=== PATIENT | female | born 1970 | race Caucasian/White ===

== ENCOUNTER 2023-04-25 21:18 | Emergency (ER) | payer OTHER ==
[2023-04-25 21:25] VITALS: TEMP 97.8
--- NOTE | 2023-04-25 21:59 | XR ---
EXAMINATION TYPE: XR wrist complete LT DATE OF EXAM: 04/25/2023 9:53 PM INDICATION: Patient age:Female; 52 years old; Reason for study: deformity fall; [facility]. COMPARISON: None TECHNIQUE: Left wrist was examined in the. Frontal, navicular, lateral, and oblique. FINDINGS/IMPRESSION: Comminuted distal radius fracture with shortening and posterior angulation, apex anterior. There is s oft tissue swelling throughout the distal wrist. Possible acute fracture of the ulnar styloid process also present.
[2023-04-25] MEDS ORDERED: LORazepam 1 MG TAB PO STA (22:29)
[2023-04-25] MEDS ORDERED: HYDROmorphone 1 MG/ML 1 ML SYRINGE IM STA (22:29)
[2023-04-25] MEDS ORDERED: ACET/COD 300 MG/30 MG STARTER PACK 6 TAB BTL PO STA (23:50)
--- NOTE | 2023-04-26 00:03 | ED ---
Upper Extremity HPI - General Chief Complaint: Extremity Injury, Upper Stated Complaint: Left wrist injury Time Seen by Provider: 04/25/23 21:25 Source: patient, family Mode of arrival: EMS Limitations: no limitations - History of Present Illness Initial Comments: 52-year-old female presents the emergency department reporting left wrist pain. States that she was at a tennis turn and when she lost her footing and fell on an outstretched left arm. She did have obvious deformity. She is right-hand dominant. Denies any numbness, tingling or weakness into her hand. Denies head injury. Did not take anything for pain before coming into the emergency department. No other alleviating, precipitating or modifying factors - Related Data Home Medications Medication Instructions Recorded Confirmed Ascorbic Acid [Vitamin C] 1,000 mg PO DAILY 04/25/23 04/25/23 Multivitamins, Thera [Multivitamin 1 tab PO DAILY 04/25/23 04/25/23 (formulary)] Vitamin D3/Vitamin K2 (Mk4) 1 tab PO DAILY 04/25/23 04/25/23 [Vitamin K2 Plus D3 Tablet] Previous Rx's Medication Instructions Recorded HYDROcodone/APAP 10-325MG [Zaleski 1 tab PO Q4HR PRN 3 Days #18 tab 04/26/23 10-325] Allergies Allergy/AdvReac Type Severity Reaction Status Date / Time No Known Allergies Allergy Verified 04/25/23 22:09 Review of Systems ROS Statement: Those systems with pertinent positive or pertinent negative responses have been documented in the HPI. ROS Other: All systems not noted in ROS Statement are negative. Past Medical History Past Medical History: No Reported History History of Any Multi-Drug Resistant Organisms: None Reported Additional Past Surgical History / Comment(s): spinal fusion Past Psychological History: No Psychological Hx Reported Smoking Status: Never smoker Past Alcohol Use History: None Reported Past Drug Use History: None Reported General Exam Limitations: no limitations General appearance: alert, in distress Head exam: Present: atraumatic, normocephalic, normal inspection Eye exam: Present: normal appearance, PERRL, EOMI. Absent: scleral icterus, con junctival injection, periorbital swelling ENT exam: Present: normal exam, mucous membranes moist Extremities exam: Present: other (Obvious swelling and deformity to the distal left wrist. 2+ radial and ulnar pulses. Compartments are soft. Intact range of motion of all 5 digits.) Psychiatric exam: Present: normal affect, normal mood Skin exam: Present: warm, dry, intact, normal color. Absent: rash Course Vital Signs 04/25/23 04/26/23 21:22 00:30 Temperature 97.8 F Pulse Rate 81 80 Respiratory 20 17 Rate Blood Pressure 127/70 124/71 O2 Sat by Pulse 100 99 Oximetry Procedures - Orthopedic Fracture Reduction Fracture #1 Consent Obtained: verbal consent Side: left Fracture Reduction Location: radius Technique: direct manipulation Post Reduction X-rays Demonstrate: acceptable reduction Post-Reduction Neuro Exam: intact Post-Reduction Vascular Exam: intact Splint Applied: Yes Patient Tolerated Procedure: well, no complications - Orthopedic Splinting/Casting Injury #1 Side: left Upper Extremity Injury Location: wrist Upper Extremity Immobilizer: sugar tong splint, synthetic pre-padded splint Medical Decision Making - Medical Decision Making Was pt. sent in by a medical professional or institution (, PA, ENVIRONMENTAL LAW PROFESSOR, urgent care, hospital, or longterm...) When possible be specific @ -No Did you speak to anyone other than the patient for history (EMS, parent, family, police, friend...)? What history was obtained from this source @ -I spoke with the patient's Did you review nursing and triage notes (agree or disagree)? Why? @ -I reviewed and agree with nursing and triage notes Were old charts reviewed (outside hosp., previous admission, EMS record, old EKG, old radiological studies, urgent care reports/EKG's, longterm records)? Report findings @ -No old charts were reviewed Differential Diagnosis (chest pain, altered mental status, abdominal pain women, abdominal pain men, vaginal bleeding, weakness, fever, dyspnea, syncope, headache, dizziness, GI bleed, back pain, seizure, CVA, palpatations, mental health, musculoskeletal)? @ -Differential Musculoskeletal Muscular strain, contusion, ligament sprain, fracture, arthritis, septic arthritis, bursitis, cellulitis, muscle spasm, nerve compression, DVT, arterial occlusion, herpes zoster, electrolyte abnormality, tumor.... This is not meant to be in all inclusive list EKG interpreted by me (3pts min.). @ -Not completed X-rays interpreted by me (1pt min.). @ -Yes and demonstrates distal radius and ulnar fracture CT interpreted by me (1pt min.). @ -None done U/S interpreted by me (1pt. min.). @ -None done What testing was considered but not performed or refused? (CT, X-rays, U/S, labs)? Why? @ -None What meds were considered but not given or refused? Why? @ -None Did you discuss the management of the patient with other professionals (professionals i.e. DrRama, PA, ENVIRONMENTAL LAW PROFESSOR, lab, RT, psych nurse, public health social worker, oyster preparer, teacher, chief investment officer, egg caser)? Give summary @ -No Was smoking cessation discussed for >3mins.? @ -No Was critical care preformed (if so, how long)? @ -No Were there social determinants of health that impacted care today? How? (Homelessness, low income, unemployed, alcoholism, drug addiction, transportation, low edu. Level, literacy, decrease access to med. care, detention, rehab)? @ -No Was there de-escalation of care discussed even if they declined (Discuss DNR or withdrawal of care, Hospice)? DNR status @ -No What co-morbidities impacted this encounter? (DM, HTN, Smoking, COPD, CAD, Cancer, CVA, ARF, Chemo, Hep., AIDS, mental health diagnosis, sleep apnea, morbid obesity)? @ -None Was patient admitted / discharged? Hospital course, mention meds given and route, prescriptions, significant lab abnormalities, going to OR and other pertinent info. @ -Upon arrival patient was placed into room 14. Thorough history and physical exam was performed. She was given pain and anxiety medications. Reduction is performed. Patient placed in a splint. She'll be discharged home and instructed follow-up with orthopedics. She does make an appointment while she is in the emergency department for 12:30 tomorrow. Instructed to rest, ice and elevate the extremity. She'll be given a short course of medications for pain. Return for any new or worsening symptoms. Patient was agreeable discharged in stable condition Undiagnosed new problem with uncertain prognosis? @ -No Drug Therapy requiring intensive monitoring for toxicity (Heparin, Nitro, Insulin, Cardizem)? @ -No Were any procedures done? @ -Splint application left sugar tong, fracture reduction Diagnosis/symptom? @ -aute fall, acute distal radius and ulnar fracture Acute, or Chronic, or Acute on Chronic? @ -Acute Uncomplicated (without systemic symptoms) or Complicated (systemic symptoms)? @ -Complicated Side effects of treatment? @ -No Exacerbation, Progression, or Severe Exacerbation? @ -No Poses a threat to life or bodily function? How? (Chest pain, [place], [place], pneumonia, PE, COPD, DKA, ARF, appy, cholecystitis, CVA, Diverticulitis, Homicidal, Suicidal, threat to staff... and all critical care pts) @ -No Disposition Clinical Impression: Distal radius fracture, left, Fall Disposition: HOME SELF-CARE Condition: Stable Instructions (If sedation given, give patient instructions): Wrist Fracture in Adults (ED) Additional Instructions: Please wear the splint at all times. Do not get it wet. See the orthopedic doctor for further treatment options. Alternate taking Motrin 600 mg (3 [id number] tablets) with a Zaleski every 4 hours. Return for any new or worsening symptoms Prescriptions: HYDROcodone/APAP 10-325MG [Zaleski 10-325] 1 tab PO Q4HR PRN 3 Days #18 tab PRN Reason: Pain Is patient prescribed a controlled substance at d/c from ED?: Yes When asked, does pt state using other controlled substances?: No If prescribed controlled substance>3 days was MAPS reviewed?: Prescribed <3 Days If opioid is for acute pain is fill amount 7 days or less?: Yes Referrals: Nonstaff,Physician [Primary Care Provider] - 1-2 days Time of Disposition: 00:03
--- NOTE | 2023-04-26 00:18 | XR ---
EXAM: XR Left Wrist, 2 Views CLINICAL HISTORY: ITS.REASON XR Reason: post splint TECHNIQUE: Frontal and lateral views of the left wrist. COMPARISON: 04/25/23 at 2147 hrs. FINDINGS: Bones/joints: Comminuted intra-articular distal radius fracture demonstrating improved alignment. Mild dorsal angulation of the distal fragment. Nondisplaced ulnar styloid fracture. No dislocation. Soft tissues: Soft tissue swelling. No radiopaque foreign body. Other findings: Splint has been placed. IMPRESSION: 1. Comminuted intra-articular distal radius fracture demonstrating improved alignment. Mild dorsal angulation of the distal fragment. 2. Nondisplaced ulnar styloid fracture. 3. Splint has been placed.
[2023-04-26] MEDS ORDERED: IBUPROFEN 600 MG STARTER PACK 4 TAB BTL PO STA (00:19)
[2023-04-26 00:31] VITALS: BP 124/71; PULSE 80; RESP 17
== END 2023-04-26 00:31 | disposition home or self-care (01) ==
LOC: EC 21:18
DX: S52.572A Other intraarticular fracture of lower end of left radius, initial encounter for closed fracture (principal); S52.592A Other fractures of lower end of left radius, initial encounter for closed fracture; S52.615A Nondisplaced fracture of left ulna styloid process, initial encounter for closed fracture; W01.0XXD Fall on same level from slipping, tripping and stumbling without subsequent striking against object, subsequent encounter
CPT/HCPCS: 73100; 73110; 99283; 96372; 25605; J1170